=== PATIENT | female | born 2000 | race American Indian/Alaskan Native ===

== ENCOUNTER 2022-02-05 20:02 | Inpatient (IN) | payer MEDICAID ==
[2022-02-05] MEDS ORDERED: LOPERAMIDE 2 MG CAP PO PRN (22:05)
[2022-02-05] MEDS ORDERED: BUTORPHANOL 2 MG/1 ML INJ IV PRN (22:05)
[2022-02-05] MEDS ORDERED: ePHEDrine SULFATE 50 MG/1 ML INJ IV PRN (22:05)
[2022-02-05] MEDS ORDERED: LIDOCAINE (2%) 20 MG/1 ML VIAL 20 ML MDV INFILTRATI ONE (22:05)
[2022-02-05] MEDS ORDERED: miSOPROStol 200 MCG TAB PR PRN (22:05)
[2022-02-05] MEDS ORDERED: METHYLERGONOVINE MALEATE 0.2 MG/ML VIAL IM PRN (22:05)
[2022-02-05] MEDS ORDERED: TERBUTALINE 1 MG/1 ML INJ SUB-Q PRN (22:05)
[2022-02-05] MEDS ORDERED: CARBOPROST TROMETHAMINE 250 MCG/1 ML INJ IM PRN (22:05)
[2022-02-05] MEDS ORDERED: MINERAL OIL 30 ML ORAL LIQD PO PRN (22:05)
[2022-02-05] MEDS ORDERED: ACETAMINOPHEN 325 MG TAB PO PRN (22:05)
[2022-02-05] MEDS ORDERED: OXYTOCIN 10 UNIT/1 ML INJ IM PRN (22:05)
[2022-02-05] MEDS ORDERED: DINOPROSTONE 10 MG VAG SUPP VG ONE (23:40)
[2022-02-05] MEDS: LACTATED RINGERS 1,000 ML IV SCH (23:46)
[2022-02-05 23:49] LABS: Hematocrit 28.6 % (30.3-42.9); Hemoglobin 9.3 gm/dl (10.1-14.3); Mean Corpuscular HGB Conc 32 % (30-34); Mean Corpuscular Volume 77 fl (79-97); Platelet Count 292 K/mm3 (140-440); Red Blood Count 3.73 M/mm3 (3.65-5.03); Red Cell Distribution Width 16.2 % (13.2-15.2)
[2022-02-06] MEDS ORDERED: DINOPROSTONE 10 MG VAG SUPP VG ONE (01:00)
[2022-02-06] MEDS: LACTATED RINGERS 1,000 ML IV SCH (06:42)
--- NOTE | 2022-02-06 08:38 | History and Physical Report ---
History of Present Illness Date of examination: 02/06/22 Date of admission: 02/05/22 22:05 Chief complaint: IOL secondary to postdates History of present illness: 22 yo, G1 @ 41.2 wks, initiated care with [facility] rn disease management at 11 wks gestation. has been complicated by asthma, anemia, trichomonas, subchoronic hemorrhage and UTI. Reports to [facility] last night for scheduled IOL for post-date . Reports + FM. Denies any VB or LOF. Labs: O+, antibody negative; rubella immune; HBsAg negative; HIV negative; Hep C negative; HSV2 negative; GC/Chlamydia negative; MSAFP/Multiple markers low-risk; 1 hr gtt 113; GBS negative. Past History Past Medical History: asthma Past Surgical History: no surgical history Family/Genetic History: none Social history: single, smoking (marijuana), full code. denies: alcohol abuse, prescription drug abuse, IV drug use - Obstetrical History Expected Date of Delivery: 01/29/22 Actual Gestation: 41 Week(s) 2 Day(s) : 1 Para: 0 Hx # Term Pregnancies: 0 Number of Pregnancies: 0 Spontaneous Abortions: 0 Induced : 0 Number of Living Children: 0 Medications and Allergies Allergies Allergy/AdvReac Type Severity Reaction Status Date / Time No Known Allergies Allergy Unverified 02/05/22 22:05 Active Meds: Active Medications Acetaminophen (Acetaminophen 325 Mg Tab) 650 mg PO Q4H PRN PRN Reason: Pain, Mild (1-3) Butorphanol Tartrate (Butorphanol 2 Mg/1 Ml Inj) 1 mg IV Q2H PRN PRN Reason: Pain, Moderate(4-6) LABOR PAIN Last Admin: 02/06/22 06:52 Dose: 1 mg Carboprost Tromethamine (Carboprost Tromethamine 250 Mcg/1 Ml Inj) 250 mcg IM ONCE PRN PRN Reason: Uterine Bleeding Ephedrine Sulfate (Ephedrine Sulfate 50 Mg/1 Ml Inj) 10 mg IV Q2M PRN PRN Reason: Hypotension Fentanyl (Fentanyl 100 Mcg/2 Ml Inj) 100 mcg IV Q2H PRN PRN Reason: Pain,Severe (7-10) LABOR PAIN Lactated Ringer's (Lactated Ringers) 1,000 mls @ 125 mls/hr IV DIRECT JUAN MANUEL Last Admin: 02/06/22 06:42 Dose: 125 mls/hr Loperamide HCl (Loperamide 2 Mg Cap) 2 mg PO ONCE PRN PRN Reason: give with Hemabate Methylergonovine Maleate (Methylergonovine Maleate 0.2 Mg/Ml Vial) 0.2 mg IM ONCE PRN PRN Reason: Uterine Bleeding Mineral Oil (Mineral Oil 30 Ml Oral Liqd) 30 ml PO QHS PRN PRN Reason: Constipation Misoprostol (Misoprostol 200 Mcg Tab) 800 mcg [place] ONCE PRN PRN Reason: Uterine Bleeding Oxytocin (Oxytocin 10 Unit/1 Ml Inj) 10 unit IM ONCE PRN PRN Reason: Uterine Bleeding Terbutaline Sulfate (Terbutaline 1 Mg/1 Ml Inj) 0.25 mg SUB-Q ONCE PRN PRN Reason: Hyperstimulation/Hypertonicity - Vital Signs Vital signs: Vital Signs Pulse BP 104 H 134/68 02/05/22 22:04 02/05/22 22:04 Temp Pulse Resp BP Pulse Ox 98.1 F 110 H 119/69 100 02/06/22 03:40 02/06/22 08:25 02/06/22 08:18 02/06/22 08:25 - Physical Exam Breasts: Positive: normal Cardiovascular: Regular rate Lungs: Positive: Normal air movement Abdomen: Positive: other (gravid) Uterus: Positive: enlarged (S=D) Extremities: Positive: edema Deep Tendon Reflex Grade: Normal +2 - Obstetrical FHR: category 1 Cervical Dilatation: 0 (per RN) Cervical Effacement Percentage: 30 station: -3 Uterine Contraction Pattern: Irregular Uterine Tone Measurement Phase: Resting Results Result Diagrams: 02/05/22 22:51 Abnormal lab results 02/05/22 Range/Units 22:51 Hgb 9.3 L (10.1-14.3) gm/dl Hct 28.6 L (30.3-42.9) % MCV 77 L (79-97) fl MCH 25 L (28-32) pg RDW 16.2 H (13.2-15.2) % All other labs normal. Assessment and Plan - Patient Problems (1) Post-dates Current Visit: Yes Status: Acute Qualifiers: Post-term type: 40-42 weeks gestation Qualified Code(s): O48.0 - Post-term Plan to address problem: IOL, initiate cervidil as tolerated Pain meds as needed Continue to closely monitor maternal/fatal wellbeing (2) Anemia Current Visit: Yes Status: Acute Qualifiers: Anemia type: iron deficiency Plan to address problem: Asymptomatic (3) COVID-19 Current Visit: Yes Status: Acute Plan to address problem: Maintain precautions per protocol
[2022-02-06] MEDS: miSOPROStol 25 MCG TAB PO PRN ×2 (16:31→20:46)
[2022-02-07] MEDS: fentaNYL 100 MCG/2 ML INJ IV PRN ×3 (01:40→22:59)
[2022-02-07] MEDS: miSOPROStol 25 MCG TAB PO PRN (07:23)
--- NOTE | 2022-02-07 08:18 | Progress Note ---
Assessment and Plan - Patient Problems (1) Post-dates Current Visit: Yes Status: Acute Qualifiers: Post-term type: 40-42 weeks gestation Qualified Code(s): O48.0 - Post-term Plan to address problem: May shower and eat bkft Continue cytotec as ordered Continue to closely monitor maternal/fatal wellbeing (2) Anemia Current Visit: Yes Status: Acute Qualifiers: Anemia type: iron deficiency Plan to address problem: Asymptomatic (3) COVID-19 Current Visit: Yes Status: Acute Plan to address problem: Maintain precautions per protocol Subjective - Subjective Date of service: 02/07/22 Principal diagnosis: post-date ; IOL Interval history: 22 yo, G1 @ 41.2 wks, initiated care with [place] [facility] at 11 wks gestation. has been complicated by asthma, anemia, trichomonas, subchoronic hemorrhage and UTI. Reports to [facility] last night for scheduled IOL for post-date . Reports + FM. Denies any VB or LOF. Labs: O+, antibody negative; rubella immune; HBsAg negative; HIV negative; Hep C n egative; HSV2 negative; GC/Chlamydia negative; MSAFP/Multiple markers low-risk; 1 hr gtt 113; GBS negative. Patient reports: movement normal, contractions, no new complaints, no loss of fluid, no vaginal bleeding Objective - Vital Signs Vital Signs: Vital Signs - 12hr 02/06/22 02/06/22 02/06/22 20:16 20:21 20:26 Temperature Pulse Rate 104 H 107 H 102 H Respiratory Rate Blood Pressure O2 Sat by Pulse 99 99 99 Oximetry O2 Sat by Pulse Oximetry [ Throughout] 02/06/22 02/06/22 02/06/22 20:31 20:36 20:41 Temperature Pulse Rate 107 H 108 H 104 H Respiratory Rate Blood Pressure O2 Sat by Pulse 99 100 99 Oximetry O2 Sat by Pulse Oximetry [ Throughout] 02/06/22 02/06/22 02/06/22 20:46 20:48 20:51 Temperature Pulse Rate 121 H 98 H 109 H Respiratory Rate Blood Pressure 115/59 O2 Sat by Pulse 99 100 Oximetry O2 Sat by Pulse Oximetry [ Throughout] 02/06/22 02/06/22 02/06/22 20:56 21:01 21:06 Temperature Pulse Rate 104 H 106 H 94 H Respiratory Rate Blood Pressure O2 Sat by Pulse 100 99 99 Oximetry O2 Sat by Pulse Oximetry [ Throughout] 02/06/22 02/06/22 02/06/22 21:11 21:16 21:26 Temperature Pulse Rate 106 H 106 H 107 H Respiratory Rate Blood Pressure O2 Sat by Pulse 99 99 99 Oximetry O2 Sat by Pulse Oximetry [ Throughout] 02/06/22 02/06/22 02/06/22 21:31 21:36 21:41 Temperature Pulse Rate 104 H 105 H 104 H Respiratory Rate Blood Pressure O2 Sat by Pulse 100 100 99 Oximetry O2 Sat by Pulse Oximetry [ Throughout] 02/06/22 02/06/22 02/06/22 21:46 21:51 21:56 Temperature Pulse Rate 110 H 104 H 101 H Respiratory Rate Blood Pressure O2 Sat by Pulse 100 99 99 Oximetry O2 Sat by Pulse Oximetry [ Throughout] 02/06/22 02/06/22 02/06/22 22:01 22:06 22:11 Temperature Pulse Rate 103 H 100 H 109 H Respiratory Rate Blood Pressure O2 Sat by Pulse 99 99 99 Oximetry O2 Sat by Pulse Oximetry [ Throughout] 02/06/22 02/06/22 02/06/22 22:16 22:21 22:26 Temperature Pulse Rate 101 H 111 H 105 H Respiratory Rate Blood Pressure O2 Sat by Pulse 99 99 98 Oximetry O2 Sat by Pulse Oximetry [ Throughout] 02/06/22 02/06/22 02/06/22 22:31 22:36 22:41 Temperature Pulse Rate 113 H 105 H 119 H Respiratory Rate Blood Pressure O2 Sat by Pulse 99 99 100 Oximetry O2 Sat by Pulse Oximetry [ Throughout] 02/06/22 02/06/22 02/06/22 22:46 22:51 22:56 Temperature Pulse Rate 95 H 102 H 102 H Respiratory Rate Blood Pressure O2 Sat by Pulse 98 98 99 Oximetry O2 Sat by Pulse Oximetry [ Throughout] 02/06/22 02/06/22 02/06/22 23:01 23:06 23:11 Temperature Pulse Rate 117 H 95 H 96 H Respiratory Rate Blood Pressure O2 Sat by Pulse 99 98 98 Oximetry O2 Sat by Pulse Oximetry [ Throughout] 02/06/22 02/06/22 02/06/22 23:16 23:21 23:26 Temperature Pulse Rate 97 H 97 H 114 H Respiratory Rate Blood Pressure O2 Sat by Pulse 99 99 99 Oximetry O2 Sat by Pulse Oximetry [ Throughout] 02/06/22 02/06/22 02/06/22 23:31 23:36 23:41 Temperature Pulse Rate 96 H 93 H 92 H Respiratory Rate Blood Pressure O2 Sat by Pulse 98 99 98 Oximetry O2 Sat by Pulse Oximetry [ Throughout] 02/06/22 02/06/22 02/06/22 23:46 23:51 23:56 Temperature Pulse Rate 90 94 H 92 H Respiratory Rate Blood Pressure O2 Sat by Pulse 99 99 99 Oximetry O2 Sat by Pulse Oximetry [ Throughout] 02/07/22 02/07/22 02/07/22 00:01 00:06 00:15 Temperature Pulse Rate 104 H 104 H 104 H Respiratory Rate Blood Pressure O2 Sat by Pulse 100 99 99 Oximetry O2 Sat by Pulse Oximetry [ Throughout] 02/07/22 02/07/22 02/07/22 00:20 00:25 00:30 Temperature 98.4 F Pulse Rate 91 H 98 H 92 H Respiratory 18 Rate Blood Pressure O2 Sat by Pulse 99 100 100 Oximetry O2 Sat by Pulse 98 Oximetry [ Throughout] 02/07/22 02/07/22 02/07/22 00:35 00:40 00:45 Temperature Pulse Rate 91 H 102 H 95 H Respiratory Rate Blood Pressure O2 Sat by Pulse 100 100 99 Oximetry O2 Sat by Pulse Oximetry [ Throughout] 02/07/22 02/07/22 02/07/22 00:50 00:55 01:00 Temperature Pulse Rate 97 H 92 H 98 H Respiratory Rate Blood Pressure O2 Sat by Pulse 100 99 99 Oximetry O2 Sat by Pulse Oximetry [ Throughout] 02/07/22 02/07/22 02/07/22 01:05 01:10 01:20 Temperature Pulse Rate 107 H 99 H 106 H Respiratory Rate Blood Pressure O2 Sat by Pulse 100 99 99 Oximetry O2 Sat by Pulse Oximetry [ Throughout] 02/07/22 02/07/22 02/07/22 01:25 01:30 01:35 Temperature Pulse Rate 100 H 118 H 94 H Respiratory Rate Blood Pressure O2 Sat by Pulse 100 100 99 Oximetry O2 Sat by Pulse Oximetry [ Throughout] 02/07/22 02/07/22 02/07/22 01:39 01:40 01:45 Temperature Pulse Rate 93 H 101 H 101 H Respiratory Rate Blood Pressure 119/59 O2 Sat by Pulse 100 99 Oximetry O2 Sat by Pulse Oximetry [ Throughout] 02/07/22 02/07/22 02/07/22 01:50 01:55 02:00 Temperature Pulse Rate 92 H 94 H 91 H Respiratory Rate Blood Pressure O2 Sat by Pulse 98 99 99 Oximetry O2 Sat by Pulse Oximetry [ Throughout] 02/07/22 02/07/22 02/07/22 02:05 02:10 02:15 Temperature Pulse Rate 91 H 105 H 98 H Respiratory Rate Blood Pressure O2 Sat by Pulse 99 100 99 Oximetry O2 Sat by Pulse Oximetry [ Throughout] 02/07/22 02/07/22 02/07/22 02:20 02:25 02:30 Temperature Pulse Rate 93 H 94 H 95 H Respiratory Rate Blood Pressure O2 Sat by Pulse 99 98 98 Oximetry O2 Sat by Pulse Oximetry [ Throughout] 02/07/22 02/07/22 02/07/22 02:35 02:40 02:45 Temperature Pulse Rate 96 H 121 H 117 H Respiratory Rate Blood Pressure O2 Sat by Pulse 99 100 100 Oximetry O2 Sat by Pulse Oximetry [ Throughout] 02/07/22 02/07/22 02/07/22 02:50 02:55 03:00 Temperature Pulse Rate 99 H 95 H 101 H Respiratory Rate Blood Pressure O2 Sat by Pulse 98 98 99 Oximetry O2 Sat by Pulse Oximetry [ Throughout] 02/07/22 02/07/22 02/07/22 03:05 03:10 03:15 Temperature Pulse Rate 96 H 91 H 111 H Respiratory Rate Blood Pressure O2 Sat by Pulse 99 98 100 Oximetry O2 Sat by Pulse Oximetry [ Throughout] 02/07/22 02/07/22 02/07/22 03:20 03:25 03:30 Temperature Pulse Rate 85 111 H 120 H Respiratory Rate Blood Pressure O2 Sat by Pulse 99 100 98 Oximetry O2 Sat by Pulse Oximetry [ Throughout] 02/07/22 02/07/22 02/07/22 03:35 03:40 03:45 Temperature Pulse Rate 88 97 H 99 H Respiratory Rate Blood Pressure O2 Sat by Pulse 98 100 99 Oximetry O2 Sat by Pulse Oximetry [ Throughout] 02/07/22 02/07/22 02/07/22 03:50 03:55 04:00 Temperature Pulse Rate 84 98 H 90 Respiratory Rate Blood Pressure O2 Sat by Pulse 99 99 99 Oximetry O2 Sat by Pulse Oximetry [ Throughout] 02/07/22 02/07/22 02/07/22 04:05 04:10 04:15 Temperature Pulse Rate 114 H 90 93 H Respiratory Rate Blood Pressure O2 Sat by Pulse 100 99 98 Oximetry O2 Sat by Pulse Oximetry [ Throughout] 02/07/22 02/07/22 02/07/22 04:20 04:25 04:30 Temperature Pulse Rate 96 H 87 91 H Respiratory Rate Blood Pressure O2 Sat by Pulse 99 99 99 Oximetry O2 Sat by Pulse Oximetry [ Throughout] 02/07/22 02/07/22 02/07/22 04:35 04:40 04:45 Temperature Pulse Rate 85 91 H 85 Respiratory Rate Blood Pressure O2 Sat by Pulse 99 100 99 Oximetry O2 Sat by Pulse Oximetry [ Throughout] 02/07/22 02/07/22 02/07/22 04:50 04:55 05:00 Temperature Pulse Rate 96 H 105 H 92 H Respiratory Rate Blood Pressure O2 Sat by Pulse 99 100 99 Oximetry O2 Sat by Pulse Oximetry [ Throughout] 02/07/22 02/07/22 02/07/22 05:05 05:16 05:21 Temperature Pulse Rate 94 H 104 H 109 H Respiratory Rate Blood Pressure O2 Sat by Pulse 99 100 100 Oximetry O2 Sat by Pulse Oximetry [ Throughout] 02/07/22 02/07/22 02/07/22 05:26 05:30 05:31 Temperature 98.4 F Pulse Rate 99 H 97 H Respiratory 20 Rate Blood Pressure O2 Sat by Pulse 99 99 Oximetry O2 Sat by Pulse Oximetry [ Throughout] 02/07/22 02/07/22 02/07/22 05:36 05:41 05:46 Temperature Pulse Rate 94 H 110 H 95 H Respiratory Rate Blood Pressure O2 Sat by Pulse 99 100 98 Oximetry O2 Sat by Pulse Oximetry [ Throughout] 02/07/22 02/07/22 02/07/22 05:51 05:56 06:01 Temperature Pulse Rate 98 H 90 117 H Respiratory Rate Blood Pressure O2 Sat by Pulse 99 98 100 Oximetry O2 Sat by Pulse Oximetry [ Throughout] 02/07/22 02/07/22 02/07/22 06:06 06:11 06:16 Temperature Pulse Rate 91 H 95 H 95 H Respiratory Rate Blood Pressure O2 Sat by Pulse 99 99 99 Oximetry O2 Sat by Pulse Oximetry [ Throughout] 02/07/22 02/07/22 02/07/22 06:21 06:26 06:31 Temperature Pulse Rate 97 H 94 H 94 H Respiratory Rate Blood Pressure O2 Sat by Pulse 99 99 100 Oximetry O2 Sat by Pulse Oximetry [ Throughout] 02/07/22 02/07/22 02/07/22 06:36 06:41 06:46 Temperature Pulse Rate 98 H 94 H 105 H Respiratory Rate Blood Pressure O2 Sat by Pulse 99 99 98 Oximetry O2 Sat by Pulse Oximetry [ Throughout] 02/07/22 02/07/22 02/07/22 06:51 06:56 07:01 Temperature Pulse Rate 89 118 H 113 H Respiratory Rate Blood Pressure O2 Sat by Pulse 99 100 99 Oximetry O2 Sat by Pulse Oximetry [ Throughout] 02/07/22 02/07/22 02/07/22 07:06 07:11 07:16 Temperature Pulse Rate 90 95 H 94 H Respiratory Rate Blood Pressure O2 Sat by Pulse 98 99 99 Oximetry O2 Sat by Pulse Oximetry [ Throughout] 02/07/22 02/07/22 02/07/22 07:21 07:26 07:35 Temperature Pulse Rate 113 H 101 H 109 H Respiratory Rate Blood Pressure O2 Sat by Pulse 100 99 100 Oximetry O2 Sat by Pulse Oximetry [ Throughout] 02/07/22 02/07/22 02/07/22 07:40 07:45 07:50 Temperature Pulse Rate 95 H 95 H 86 Respiratory Rate Blood Pressure O2 Sat by Pulse 99 99 99 Oximetry O2 Sat by Pulse Oximetry [ Throughout] 02/07/22 02/07/22 02/07/22 07:55 08:00 08:05 Temperature Pulse Rate 93 H 91 H 89 Respiratory Rate Blood Pressure O2 Sat by Pulse 100 99 100 Oximetry O2 Sat by Pulse Oximetry [ Throughout] 02/07/22 08:10 Temperature Pulse Rate 91 H Respiratory Rate Blood Pressure O2 Sat by Pulse 100 Oximetry O2 Sat by Pulse Oximetry [ Throughout] - Exam Breasts: deferred Cardiovascular: Regular rate Lungs: Normal air movement FHR: category 1 Uterine Contraction Monitor Mode: External Cervical Dilatation: 0.5 station: -3 Uterine Contraction Frequency (min): 8-10 Uterine Contraction Pattern: Irregular Uterine Tone Measurement Phase: Resting Uterine Contraction Intensity: Mild Extremities: edema Deep Tendon Reflex Grade: Normal +2 - Labs Labs: Abnormal Labs 02/05/22 02/06/22 22:51 11:05 Hgb 9.3 L Hct 28.6 L MCV 77 L MCH 25 L RDW 16.2 H SARS-CoV-2 (PCR) Positive A Laboratory Results - last 24 hr 02/06/22 11:05 SARS-CoV-2 (PCR) Positive A
[2022-02-07] MEDS ORDERED: miSOPROStol 25 MCG TAB PO SCH (12:06)
[2022-02-07] MEDS ORDERED: miSOPROStol 25 MCG TAB PO NR (12:19)
[2022-02-07] MEDS ORDERED: miSOPROStol 25 MCG TAB PO ONE (16:00)
[2022-02-07] MEDS ORDERED: OXYTOCIN DRIP 30 UNITS/500 ML BAG IV SCH (23:00)
[2022-02-08] MEDS: LACTATED RINGERS 1,000 ML IV SCH ×2 (01:05→13:46)
[2022-02-08] MEDS: fentaNYL 100 MCG/2 ML INJ IV PRN (01:54)
[2022-02-08] MEDS: BUTORPHANOL 2 MG/1 ML INJ IV PRN ×2 (03:30→07:45)
--- NOTE | 2022-02-08 10:34 | Progress Note ---
Subjective - Subjective Date of service: 02/08/22 Principal diagnosis: post-date ; IOL Interval history: Pt uncomfortable with contractions. Pt suspected leakage of fluid at 0100 am. ROM plus is positive. Category II tracing. SVE: 1.5/90/-2. Routine intrapartum care. COVID-19 positive, asymptomatic. Epidural when anesthesia available. Patient reports: movement normal, contractions, no new complaints, no loss of fluid, no vaginal bleeding Objective - Vital Signs Vital Signs: Vital Signs - 12hr 02/07/22 02/07/22 02/07/22 22:31 22:36 22:41 Temperature Pulse Rate 109 H 86 88 Respiratory Rate Blood Pressure O2 Sat by Pulse 100 99 99 Oximetry 02/07/22 02/07/22 02/07/22 22:46 22:49 22:51 Temperature Pulse Rate 91 H 84 97 H Respiratory Rate Blood Pressure 119/63 O2 Sat by Pulse 99 100 Oximetry 02/07/22 02/07/22 02/07/22 22:56 23:01 23:06 Temperature Pulse Rate 89 90 93 H Respiratory Rate Blood Pressure O2 Sat by Pulse 100 99 98 Oximetry 02/07/22 02/07/22 02/07/22 23:11 23:16 23:21 Temperature Pulse Rate 88 89 81 Respiratory Rate Blood Pressure O2 Sat by Pulse 98 99 98 Oximetry 02/07/22 02/07/22 02/07/22 23:26 23:31 23:36 Temperature Pulse Rate 85 90 82 Respiratory Rate Blood Pressure O2 Sat by Pulse 99 100 99 Oximetry 02/07/22 02/07/22 02/07/22 23:41 23:46 23:49 Temperature Pulse Rate 85 103 H 80 Respiratory Rate Blood Pressure 116/67 O2 Sat by Pulse 99 99 Oximetry 02/07/22 02/07/22 02/08/22 23:51 23:56 00:01 Temperature Pulse Rate 88 80 95 H Respiratory Rate Blood Pressure O2 Sat by Pulse 99 99 100 Oximetry 02/08/22 02/08/22 02/08/22 00:06 00:11 00:16 Temperature Pulse Rate 81 102 H 94 H Respiratory Rate Blood Pressure O2 Sat by Pulse 100 99 99 Oximetry 02/08/22 02/08/22 02/08/22 00:21 00:26 00:31 Temperature Pulse Rate 96 H 94 H 89 Respiratory Rate Blood Pressure O2 Sat by Pulse 100 99 99 Oximetry 02/08/22 02/08/22 02/08/22 00:36 01:12 01:13 Temperature Pulse Rate 105 H 123 H 127 H Respiratory Rate Blood Pressure 137/85 O2 Sat by Pulse 100 98 Oximetry 02/08/22 02/08/22 02/08/22 01:14 01:17 01:22 Temperature 97.9 F Pulse Rate 96 H 86 Respiratory 22 Rate Blood Pressure O2 Sat by Pulse 100 100 97 Oximetry 02/08/22 02/08/22 02/08/22 01:27 01:32 01:37 Temperature Pulse Rate 112 H 89 98 H Respiratory Rate Blood Pressure O2 Sat by Pulse 100 99 100 Oximetry 02/08/22 02/08/22 02/08/22 01:42 01:47 01:52 Temperature Pulse Rate 93 H 94 H 89 Respiratory Rate Blood Pressure O2 Sat by Pulse 100 100 99 Oximetry 02/08/22 02/08/22 02/08/22 01:57 02:02 02:07 Temperature Pulse Rate 100 H 100 H 97 H Respiratory Rate Blood Pressure O2 Sat by Pulse 99 98 97 Oximetry 02/08/22 02/08/22 02/08/22 02:12 02:14 02:17 Temperature Pulse Rate 93 H 76 105 H Respiratory Rate Blood Pressure 116/56 O2 Sat by Pulse 97 100 Oximetry 02/08/22 02/08/22 02/08/22 02:22 02:27 02:32 Temperature Pulse Rate 110 H 78 109 H Respiratory Rate Blood Pressure O2 Sat by Pulse 100 98 100 Oximetry 02/08/22 02/08/22 02/08/22 02:37 02:42 02:54 Temperature Pulse Rate 132 H 100 H 88 Respiratory Rate Blood Pressure O2 Sat by Pulse 100 99 100 Oximetry 02/08/22 02/08/22 02/08/22 02:59 03:04 03:09 Temperature Pulse Rate 100 H 104 H 105 H Respiratory Rate Blood Pressure O2 Sat by Pulse 99 97 99 Oximetry 02/08/22 02/08/22 02/08/22 03:14 03:19 03:24 Temperature Pulse Rate 103 H 104 H 116 H Respiratory Rate Blood Pressure 124/72 O2 Sat by Pulse 99 100 98 Oximetry 02/08/22 02/08/22 02/08/22 03:29 03:34 03:39 Temperature Pulse Rate 127 H 90 90 Respiratory Rate Blood Pressure O2 Sat by Pulse 99 97 98 Oximetry 02/08/22 02/08/22 02/08/22 03:44 03:49 03:54 Temperature Pulse Rate 93 H 103 H 90 Respiratory Rate Blood Pressure O2 Sat by Pulse 98 98 98 Oximetry 02/08/22 02/08/22 02/08/22 03:59 04:04 04:09 Temperature Pulse Rate 96 H 117 H 90 Respiratory Rate Blood Pressure O2 Sat by Pulse 99 99 97 Oximetry 02/08/22 02/08/22 02/08/22 04:13 04:14 04:19 Temperature Pulse Rate 84 81 92 H Respiratory Rate Blood Pressure 129/63 O2 Sat by Pulse 97 98 Oximetry 02/08/22 02/08/22 02/08/22 04:24 04:29 04:34 Temperature Pulse Rate 88 135 H 96 H Respiratory Rate Blood Pressure O2 Sat by Pulse 98 100 98 Oximetry 02/08/22 02/08/22 02/08/22 04:39 04:44 04:49 Temperature Pulse Rate 90 92 H 87 Respiratory Rate Blood Pressure O2 Sat by Pulse 98 98 98 Oximetry 02/08/22 02/08/22 02/08/22 04:54 04:59 05:04 Temperature Pulse Rate 94 H 86 92 H Respiratory Rate Blood Pressure O2 Sat by Pulse 98 98 98 Oximetry 02/08/22 02/08/22 02/08/22 05:09 05:13 05:20 Temperature Pulse Rate 86 100 H 120 H Respiratory Rate Blood Pressure 124/58 O2 Sat by Pulse 98 98 Oximetry 02/08/22 02/08/22 02/08/22 05:25 05:30 05:35 Temperature Pulse Rate 98 H 109 H 123 H Respiratory Rate Blood Pressure O2 Sat by Pulse 98 99 98 Oximetry 02/08/22 02/08/22 02/08/22 05:40 05:45 05:50 Temperature Pulse Rate 83 114 H 121 H Respiratory Rate Blood Pressure O2 Sat by Pulse 99 99 98 Oximetry 02/08/22 02/08/22 02/08/22 05:55 06:03 06:08 Temperature Pulse Rate 110 H 104 H 97 H Respiratory Rate Blood Pressure O2 Sat by Pulse 98 100 99 Oximetry 02/08/22 02/08/22 02/08/22 06:13 06:18 06:23 Temperature Pulse Rate 103 H 90 109 H Respiratory Rate Blood Pressure 111/67 O2 Sat by Pulse 99 98 98 Oximetry 02/08/22 02/08/22 02/08/22 06:28 06:33 06:38 Temperature Pulse Rate 103 H 112 H 116 H Respiratory Rate Blood Pressure O2 Sat by Pulse 99 98 98 Oximetry 02/08/22 02/08/22 02/08/22 06:43 06:48 06:53 Temperature Pulse Rate 109 H 90 105 H Respiratory Rate Blood Pressure O2 Sat by Pulse 100 98 99 Oximetry 02/08/22 02/08/22 02/08/22 06:58 07:03 07:08 Temperature Pulse Rate 90 91 H 100 H Respiratory Rate Blood Pressure O2 Sat by Pulse 98 99 99 Oximetry 02/08/22 02/08/22 02/08/22 07:13 07:15 07:30 Temperature Pulse Rate 97 H 100 H 119 H Respiratory Rate Blood Pressure 134/78 O2 Sat by Pulse 99 98 Oximetry 02/08/22 02/08/22 02/08/22 07:35 07:40 07:45 Temperature Pulse Rate 109 H 98 H 104 H Respiratory Rate Blood Pressure O2 Sat by Pulse 100 98 97 Oximetry 02/08/22 02/08/22 02/08/22 07:50 07:55 08:00 Temperature Pulse Rate 118 H 97 H 108 H Respiratory Rate Blood Pressure O2 Sat by Pulse 99 99 99 Oximetry 02/08/22 02/08/22 02/08/22 08:05 08:10 08:13 Temperature Pulse Rate 92 H 122 H 89 Respiratory Rate Blood Pressure 131/67 O2 Sat by Pulse 98 100 Oximetry 02/08/22 02/08/22 02/08/22 08:15 08:20 08:25 Temperature Pulse Rate 86 93 H 97 H Respiratory Rate Blood Pressure O2 Sat by Pulse 98 98 98 Oximetry 02/08/22 02/08/22 02/08/22 08:30 08:35 08:40 Temperature Pulse Rate 111 H 89 126 H Respiratory Rate Blood Pressure O2 Sat by Pulse 98 97 98 Oximetry 02/08/22 02/08/22 02/08/22 08:45 08:50 08:55 Temperature Pulse Rate 96 H 119 H 125 H Respiratory Rate Blood Pressure O2 Sat by Pulse 99 98 98 Oximetry 02/08/22 02/08/22 02/08/22 09:00 09:05 09:10 Temperature Pulse Rate 93 H 102 H 102 H Respiratory Rate Blood Pressure O2 Sat by Pulse 98 99 99 Oximetry 02/08/22 02/08/22 02/08/22 09:13 09:15 09:23 Temperature Pulse Rate 102 H 114 H 95 H Respiratory Rate Blood Pressure 131/67 O2 Sat by Pulse 99 100 Oximetry 02/08/22 02/08/22 02/08/22 09:28 09:33 09:38 Temperature Pulse Rate 103 H 105 H 112 H Respiratory Rate Blood Pressure O2 Sat by Pulse 99 99 100 Oximetry 02/08/22 02/08/22 02/08/22 09:43 09:48 09:53 Temperature Pulse Rate 103 H 107 H 100 H Respiratory Rate Blood Pressure O2 Sat by Pulse 99 99 99 Oximetry 02/08/22 02/08/22 02/08/22 10:06 10:11 10:13 Temperature Pulse Rate 122 H 116 H 93 H Respiratory Rate Blood Pressure 121/67 O2 Sat by Pulse 98 99 Oximetry 02/08/22 02/08/22 10:16 10:21 Temperature Pulse Rate 106 H 88 Respiratory Rate Blood Pressure O2 Sat by Pulse 99 98 Oximetry - Labs Labs: Abnormal Labs 02/05/22 02/06/22 02/08/22 22:51 11:05 Unknown Hgb 9.3 L Hct 28.6 L MCV 77 L MCH 25 L RDW 16.2 H Membranes Rupture Positive A SARS-CoV-2 (PCR) Positive A Laboratory Results - last 24 hr 02/08/22 Unknown Membranes Rupture Positive A
--- NOTE | 2022-02-08 12:44 | Anesthesia Consultation ---
Anesthesia Consult and Med Hx Date of service: 02/08/22 - Airway Anesthetic Teeth Evaluation: Good ROM Head & Neck: Adequate Mental/Hyoid Distance: Adequate Mallampati Class: Class II Intubation Access Assessment: Good - Pulmonary Exam CTA: Yes - Cardiac Exam Cardiac Exam: RRR - Pre-Operative Health Status ASA Pre-Surgery Classification: ASA2 Proposed Anesthetic Plan: Epidural - Pulmonary Hx Asthma: Yes (childhood) COPD: No Hx Pneumonia: No - Cardiovascular System Hx Hypertension: No - Central Nervous System Hx Seizures: No Hx Psychiatric Problems: No - Endocrine Hx Renal Disease: No Hx End Stage Renal Disease: No Hx Hypothyroidism: No Hx Hyperthyroidism: No - Hematic Hx Anemia: No Hx Sickle Cell Disease: No - Other Systems Hx Alcohol Use: No Hx Substance Use: No
--- NOTE | 2022-02-08 12:49 | Progress Note ---
Labor Epidural - Labor Epidural Start Time: 12:01 Stop Time: 12:15 Performed by:: KT COX Procedure: Patient is requesting a laboring epidural for laboring pain. Patient IDed, H&P reviewed, all questions and concerns were answered, and consent was signed. Timeout was performed at bedside. Patient in sitting position. Sterile prep and drape was performed. [3] ml of 1% lidocaine skin wheal at L[3]- L [4]. 17- gauge Tuohy epidural needle was advanced to loss of resistance with saline technique 6cm. Single dural perforation via 25 guage spinal needle placed through the shaft of Epidural needle. Positive CSF via spinal needle. Negative CSF negative blood via Epidural needle. Epidural catheter advanced to [10] centimeters. [NEGATIVE] Aspiration [NEGATIVE] test dose. Negative Paresthesia. Sterile dressing applied. Patient tolerated procedure.
[2022-02-08] MEDS ORDERED: ePHEDrine SULFATE 50 MG/1 ML INJ IV PRN (13:00)
[2022-02-08] MEDS ORDERED: NALOXONE 0.4 MG/1 ML INJ IV PRN (13:00)
[2022-02-08] MEDS: fentaNYL-BUPIV 2 MCG/ML-0.125% 200 MCG/100 ML BAG EPIDURAL SCH ×2 (13:07→21:14)
--- NOTE | 2022-02-08 13:27 | Event Note ---
Date: 02/08/22 Pt comfortable with epidural. Category II tracing. SVE: 1.5/100/-2. IUPC placed. Continue pitocin augmentation. Continue to monitor maternal and status
[2022-02-09] MEDS ORDERED: BICITRA ORAL LIQD 30ML PO ONE (01:06)
[2022-02-09] MEDS ORDERED: METOCLOPRAMIDE 10 MG/2 ML INJ IV ONE (01:06)
[2022-02-09] MEDS ORDERED: FAMOTIDINE 20 MG/2 ML INJ IV ONE (01:06)
--- NOTE | 2022-02-09 01:10 | Progress Note ---
Assessment and Plan - Patient Problems (1) Failed induction of labor Current Visit: Yes Status: Acute Plan to address problem: Will proceed with a primary delivery Subjective - Subjective Date of service: 02/09/22 Principal diagnosis: post-date ; IOL Interval history: 22-year-old at 41+4 weeks who was admitted for postterm induction. The patient has had an extensive latent phase of labor. She has had placement of an epidural twice without adequate pain control. The patient has elected to proceed with a primary delivery. Patient reports: new complaints (Pain), loss of fluid, movement normal, contractions, no vaginal bleeding Objective - Vital Signs Vital Signs: Vital Signs - 12hr 02/08/22 02/08/22 02/08/22 13:11 13:14 13:16 Temperature Pulse Rate 85 88 93 H Blood Pressure 124/76 126/76 O2 Sat by Pulse 99 99 Oximetry O2 Sat by Pulse Oximetry [ Throughout] 02/08/22 02/08/22 02/08/22 13:17 13:20 13:21 Temperature Pulse Rate 84 86 97 H Blood Pressure 124/76 123/75 O2 Sat by Pulse 98 Oximetry O2 Sat by Pulse Oximetry [ Throughout] 02/08/22 02/08/22 02/08/22 13:23 13:26 13:29 Temperature Pulse Rate 90 95 H 90 Blood Pressure 120/74 118/80 117/74 O2 Sat by Pulse 99 Oximetry O2 Sat by Pulse Oximetry [ Throughout] 02/08/22 02/08/22 02/08/22 13:31 13:32 13:35 Temperature Pulse Rate 91 H 96 H 95 H Blood Pressure 122/82 126/85 O2 Sat by Pulse 98 Oximetry O2 Sat by Pulse Oximetry [ Throughout] 02/08/22 02/08/22 02/08/22 13:36 13:38 13:41 Temperature Pulse Rate 91 H 93 H 92 H Blood Pressure 120/76 127/72 O2 Sat by Pulse 98 99 Oximetry O2 Sat by Pulse Oximetry [ Throughout] 02/08/22 02/08/22 02/08/22 13:46 13:47 13:51 Temperature Pulse Rate 107 H 113 H 95 H Blood Pressure 133/79 O2 Sat by Pulse 99 99 Oximetry O2 Sat by Pulse Oximetry [ Throughout] 08/26/22 08/26/22 08/26/22 13:56 14:01 14:02 Temperature Pulse Rate 89 92 H 95 H Blood Pressure 120/64 O2 Sat by Pulse 99 99 Oximetry O2 Sat by Pulse Oximetry [ Throughout] 02/08/22 02/08/22 02/08/22 14:06 14:11 14:16 Temperature Pulse Rate 89 90 86 Blood Pressure O2 Sat by Pulse 100 100 100 Oximetry O2 Sat by Pulse Oximetry [ Throughout] 02/08/22 02/08/22 02/08/22 14:21 14:26 14:31 Temperature Pulse Rate 86 83 84 Blood Pressure O2 Sat by Pulse 99 99 98 Oximetry O2 Sat by Pulse Oximetry [ Throughout] 02/08/22 02/08/22 02/08/22 14:34 14:36 14:41 Temperature Pulse Rate 88 84 88 Blood Pressure 118/62 O2 Sat by Pulse 99 99 Oximetry O2 Sat by Pulse Oximetry [ Throughout] 02/08/22 02/08/22 02/08/22 14:46 14:49 14:51 Temperature 98.1 F Pulse Rate 86 82 Blood Pressure O2 Sat by Pulse 99 100 Oximetry O2 Sat by Pulse Oximetry [ Throughout] 02/08/22 02/08/22 02/08/22 14:56 15:01 15:04 Temperature Pulse Rate 98 H 90 83 Blood Pressure 107/59 O2 Sat by Pulse 99 99 Oximetry O2 Sat by Pulse Oximetry [ Throughout] 02/08/22 02/08/22 02/08/22 15:06 15:11 15:16 Temperature Pulse Rate 83 83 84 Blood Pressure O2 Sat by Pulse 100 100 100 Oximetry O2 Sat by Pulse Oximetry [ Throughout] 02/08/22 02/08/22 02/08/22 15:21 15:26 15:31 Temperature Pulse Rate 82 83 90 Blood Pressure O2 Sat by Pulse 100 100 100 Oximetry O2 Sat by Pulse Oximetry [ Throughout] 02/08/22 02/08/22 02/08/22 15:33 15:36 15:41 Temperature Pulse Rate 79 87 78 Blood Pressure 118/58 O2 Sat by Pulse 100 100 Oximetry O2 Sat by Pulse Oximetry [ Throughout] 02/08/22 02/08/22 02/08/22 15:46 15:51 15:56 Temperature Pulse Rate 86 81 90 Blood Pressure O2 Sat by Pulse 100 100 100 Oximetry O2 Sat by Pulse Oximetry [ Throughout] 0802/08/22 02/08/22 16:01 16:03 16:06 Temperature Pulse Rate 92 H 83 110 H Blood Pressure 113/58 O2 Sat by Pulse 100 100 Oximetry O2 Sat by Pulse Oximetry [ Throughout] 02/08/22 02/08/22 02/08/22 16:11 16:16 16:21 Temperature Pulse Rate 90 93 H 78 Blood Pressure O2 Sat by Pulse 100 100 100 Oximetry O2 Sat by Pulse Oximetry [ Throughout] 02/08/22 02/08/22 02/08/22 16:26 16:31 16:33 Temperature Pulse Rate 88 97 H 85 Blood Pressure 113/57 O2 Sat by Pulse 100 100 Oximetry O2 Sat by Pulse Oximetry [ Throughout] 02/08/22 02/08/22 02/08/22 16:36 16:41 16:46 Temperature Pulse Rate 87 87 89 Blood Pressure O2 Sat by Pulse 100 100 100 Oximetry O2 Sat by Pulse Oximetry [ Throughout] 02/08/22 02/08/22 02/08/22 16:51 16:56 17:01 Temperature Pulse Rate 96 H 89 96 H Blood Pressure O2 Sat by Pulse 100 100 100 Oximetry O2 Sat by Pulse Oximetry [ Throughout] 02/08/22 02/08/22 02/08/22 17:03 17:06 17:11 Temperature Pulse Rate 88 89 103 H Blood Pressure 123/62 O2 Sat by Pulse 100 100 Oximetry O2 Sat by Pulse Oximetry [ Throughout] 02/08/22 02/08/22 02/08/22 17:16 17:21 17:26 Temperature Pulse Rate 90 85 87 Blood Pressure O2 Sat by Pulse 100 100 100 Oximetry O2 Sat by Pulse Oximetry [ Throughout] 02/08/22 02/08/22 02/08/22 17:31 17:33 17:36 Temperature Pulse Rate 90 90 94 H Blood Pressure 115/62 O2 Sat by Pulse 100 100 Oximetry O2 Sat by Pulse Oximetry [ Throughout] 02/08/22 02/08/22 02/08/22 17:41 17:46 17:51 Temperature Pulse Rate 84 86 88 Blood Pressure O2 Sat by Pulse 100 100 100 Oximetry O2 Sat by Pulse Oximetry [ Throughout] 02/08/22 02/08/22 02/08/22 17:56 18:01 18:04 Temperature Pulse Rate 93 H 90 84 Blood Pressure 114/56 O2 Sat by Pulse 100 100 Oximetry O2 Sat by Pulse Oximetry [ Throughout] 02/08/22 02/08/22 02/08/22 18:06 18:11 18:16 Temperature Pulse Rate 92 H 87 86 Blood Pressure O2 Sat by Pulse 100 100 100 Oximetry O2 Sat by Pulse Oximetry [ Throughout] 02/08/22 02/08/22 02/08/22 18:21 18:26 18:31 Temperature Pulse Rate 95 H 94 H 95 H Blood Pressure O2 Sat by Pulse 100 99 99 Oximetry O2 Sat by Pulse Oximetry [ Throughout] 02/08/22 02/08/22 02/08/22 18:33 18:36 18:41 Temperature Pulse Rate 101 H 106 H 105 H Blood Pressure 114/57 O2 Sat by Pulse 98 98 Oximetry O2 Sat by Pulse Oximetry [ Throughout] 02/08/22 02/08/22 02/08/22 18:46 18:51 18:56 Temperature Pulse Rate 91 H 96 H 93 H Blood Pressure O2 Sat by Pulse 98 98 98 Oximetry O2 Sat by Pulse Oximetry [ Throughout] 02/08/22 02/08/22 02/08/22 19:01 19:03 19:06 Temperature Pulse Rate 89 88 88 Blood Pressure 116/59 O2 Sat by Pulse 99 99 Oximetry O2 Sat by Pulse Oximetry [ Throughout] 02/08/22 02/08/22 02/08/22 19:11 19:16 19:21 Temperature Pulse Rate 89 94 H 93 H Blood Pressure O2 Sat by Pulse 99 99 99 Oximetry O2 Sat by Pulse Oximetry [ Throughout] 02/08/22 02/08/22 02/08/22 19:26 19:31 19:34 Temperature Pulse Rate 90 93 H 92 H Blood Pressure 123/68 O2 Sat by Pulse 99 98 Oximetry O2 Sat by Pulse Oximetry [ Throughout] 02/08/22 02/08/22 02/08/22 19:36 19:41 19:46 Temperature Pulse Rate 93 H 94 H 90 Blood Pressure O2 Sat by Pulse 98 99 98 Oximetry O2 Sat by Pulse Oximetry [ Throughout] 02/08/22 02/08/22 02/08/22 19:51 19:56 20:01 Temperature Pulse Rate 91 H 90 101 H Blood Pressure O2 Sat by Pulse 98 99 97 Oximetry O2 Sat by Pulse Oximetry [ Throughout] 02/08/22 02/08/22 02/08/22 20:05 20:06 20:11 Temperature Pulse Rate 90 94 H 90 Blood Pressure 119/65 O2 Sat by Pulse 98 99 Oximetry O2 Sat by Pulse Oximetry [ Throughout] 02/08/22 02/08/22 02/08/22 20:16 20:21 20:26 Temperature Pulse Rate 92 H 89 88 Blood Pressure O2 Sat by Pulse 99 98 99 Oximetry O2 Sat by Pulse Oximetry [ Throughout] 02/08/22 02/08/22 02/08/22 20:31 20:33 20:36 Temperature Pulse Rate 87 90 92 H Blood Pressure 124/67 O2 Sat by Pulse 99 98 Oximetry O2 Sat by Pulse Oximetry [ Throughout] 02/08/22 02/08/22 02/08/22 20:41 20:46 20:51 Temperature Pulse Rate 94 H 98 H 104 H Blood Pressure O2 Sat by Pulse 99 99 99 Oximetry O2 Sat by Pulse Oximetry [ Throughout] 02/08/22 02/08/22 02/08/22 20:56 21:01 21:02 Temperature 98.5 F Pulse Rate 102 H 96 H Blood Pressure O2 Sat by Pulse 99 99 Oximetry O2 Sat by Pulse 99 Oximetry [ Throughout] 02/08/22 02/08/22 02/08/22 21:04 21:06 21:11 Temperature Pulse Rate 100 H 101 H 100 H Blood Pressure 114/54 O2 Sat by Pulse 99 99 Oximetry O2 Sat by Pulse Oximetry [ Throughout] 02/08/22 02/08/22 02/08/22 21:16 21:21 21:26 Temperature Pulse Rate 107 H 112 H 103 H Blood Pressure O2 Sat by Pulse 99 100 99 Oximetry O2 Sat by Pulse Oximetry [ Throughout] 02/08/22 02/08/22 02/08/22 21:31 21:33 21:36 Temperature Pulse Rate 114 H 110 H 117 H Blood Pressure 116/67 O2 Sat by Pulse 99 100 Oximetry O2 Sat by Pulse Oximetry [ Throughout] 02/08/22 02/08/22 02/08/22 21:41 21:46 21:51 Temperature Pulse Rate 121 H 110 H 113 H Blood Pressure O2 Sat by Pulse 99 98 98 Oximetry O2 Sat by Pulse Oximetry [ Throughout] 02/08/22 02/08/22 02/08/22 21:56 22:01 22:03 Temperature Pulse Rate 106 H 118 H 109 H Blood Pressure 122/58 O2 Sat by Pulse 99 99 Oximetry O2 Sat by Pulse Oximetry [ Throughout] 02/08/22 02/08/22 02/08/22 22:06 22:11 22:16 Temperature Pulse Rate 115 H 98 H 99 H Blood Pressure O2 Sat by Pulse 100 98 99 Oximetry O2 Sat by Pulse Oximetry [ Throughout] 02/08/22 02/08/22 02/08/22 22:21 22:26 22:31 Temperature Pulse Rate 99 H 109 H 105 H Blood Pressure O2 Sat by Pulse 99 99 99 Oximetry O2 Sat by Pulse Oximetry [ Throughout] 02/08/22 02/08/22 02/08/22 22:33 22:36 22:41 Temperature Pulse Rate 96 H 103 H 104 H Blood Pressure 122/69 O2 Sat by Pulse 99 99 Oximetry O2 Sat by Pulse Oximetry [ Throughout] 02/08/22 02/08/22 02/08/22 22:46 22:51 22:56 Temperature Pulse Rate 112 H 119 H 102 H Blood Pressure O2 Sat by Pulse 100 99 99 Oximetry O2 Sat by Pulse Oximetry [ Throughout] 02/08/22 02/08/22 02/08/22 23:01 23:03 23:06 Temperature Pulse Rate 122 H 106 H 109 H Blood Pressure 130/79 O2 Sat by Pulse 98 98 Oximetry O2 Sat by Pulse Oximetry [ Throughout] 02/08/22 02/08/22 02/08/22 23:11 23:16 23:21 Temperature Pulse Rate 109 H 132 H 106 H Blood Pressure O2 Sat by Pulse 99 99 98 Oximetry O2 Sat by Pulse Oximetry [ Throughout] 02/08/22 02/08/22 02/08/22 23:26 23:31 23:33 Temperature Pulse Rate 130 H 118 H 120 H Blood Pressure 138/71 O2 Sat by Pulse 99 98 Oximetry O2 Sat by Pulse Oximetry [ Throughout] 02/08/22 02/08/22 02/08/22 23:36 23:41 23:46 Temperature Pulse Rate 118 H 130 H 121 H Blood Pressure O2 Sat by Pulse 100 99 99 Oximetry O2 Sat by Pulse Oximetry [ Throughout] 02/08/22 02/08/22 02/09/22 23:51 23:56 00:01 Temperature Pulse Rate 117 H 110 H 105 H Blood Pressure O2 Sat by Pulse 99 98 99 Oximetry O2 Sat by Pulse Oximetry [ Throughout] 02/09/22 02/09/22 02/09/22 00:03 00:06 00:11 Temperature Pulse Rate 100 H 131 H 111 H Blood Pressure 130/66 O2 Sat by Pulse 99 99 Oximetry O2 Sat by Pulse Oximetry [ Throughout] 02/09/22 02/09/22 02/09/22 00:16 00:21 00:26 Temperature Pulse Rate 104 H 101 H 110 H Blood Pressure O2 Sat by Pulse 99 99 100 Oximetry O2 Sat by Pulse Oximetry [ Throughout] 02/09/22 02/09/22 02/09/22 00:31 00:33 00:36 Temperature Pulse Rate 115 H 114 H 119 H Blood Pressure 145/65 O2 Sat by Pulse 99 99 Oximetry O2 Sat by Pulse Oximetry [ Throughout] 02/09/22 02/09/22 02/09/22 00:41 00:46 00:51 Temperature Pulse Rate 124 H 119 H 121 H Blood Pressure O2 Sat by Pulse 100 100 100 Oximetry O2 Sat by Pulse Oximetry [ Throughout] 02/09/22 02/09/22 02/09/22 00:56 01:01 01:03 Temperature Pulse Rate 115 H 107 H 108 H Blood Pressure 131/77 O2 Sat by Pulse 98 99 Oximetry O2 Sat by Pulse Oximetry [ Throughout] 02/09/22 01:06 Temperature Pulse Rate 135 H Blood Pressure O2 Sat by Pulse 100 Oximetry O2 Sat by Pulse Oximetry [ Throughout] - Labs Labs: Abnormal Labs 02/05/22 02/06/22 02/08/22 22:51 11:05 Unknown Hgb 9.3 L Hct 28.6 L MCV 77 L MCH 25 L RDW 16.2 H Membranes Rupture Positive A SARS-CoV-2 (PCR) Positive A Laboratory Results - last 24 hr 02/08/22 Unknown Membranes Rupture Positive A
[2022-02-09] MEDS ORDERED: LACTATED RINGERS 1,000 ML IV SCH (01:15)
[2022-02-09] MEDS ORDERED: OXYTOCIN DRIP 30 UNITS/500 ML BAG IV SCH ×2 (02:00→08:00)
[2022-02-09] MEDS ORDERED: ceFAZolin/Water 2 GM/20 ML 2 GM/20 ML SYRINGE IV NR (02:00)
[2022-02-09] MEDS: fentaNYL-BUPIV 2 MCG/ML-0.125% 200 MCG/100 ML BAG EPIDURAL SCH (03:37)
[2022-02-09] MEDS ORDERED: SODIUM CHLORIDE 0.9% IRR 1,500 ML BOTTLE IR ONE (06:15)
[2022-02-09] MEDS ORDERED: WATER FOR IRRIG STERILE 1,500 ML BOTTLE IR ONE (06:15)
[2022-02-09] MEDS ORDERED: LIDOCAINE MPF (2%) 20 MG/1 ML VIAL 5 ML ONE ×2 (06:22→06:23)
[2022-02-09] MEDS ORDERED: OXYTOCIN 10 UNIT/1 ML INJ ONE (06:53)
[2022-02-09] MEDS ORDERED: BUPIVACAINE/PF (0.5%) 5 MG/1 ML 30 ML VIAL INFILTRATI ONE (07:13)
[2022-02-09] MEDS ORDERED: dexAMETHasone 20 MG/5 ML VIAL ONE (07:13)
[2022-02-09] MEDS ORDERED: SODIUM CHLORIDE 0.9% 100 ML ONE (07:15)
--- NOTE | 2022-02-09 07:15 | Procedure Note ---
OB Delivery Note - Delivery Date of Delivery: 02/09/22 Surgeon: LARRY ALMONTE Estimated blood loss: other (qbl 880ml) - Section Preop diagnosis: arrest of dilation Postop diagnosis: same section procedure: section, primary low transverse Disposition: PACU Complications: none - Infant A at 1 minute: 8 at 5 minutes: 9 Infant Gender: Female (Weight 6 pounds 11 ounces)
[2022-02-09] MEDS ORDERED: WITCH HAZEL/ GLYCERIN PAD TP PRN (07:17)
[2022-02-09] MEDS ORDERED: LANOLIN/ZINC/DIMETHICONE (LANSINOH) 7 GM TP PRN (07:17)
[2022-02-09] MEDS ORDERED: NALOXONE 0.4 MG/1 ML INJ IV PRN (07:17)
--- NOTE | 2022-02-09 07:17 | Operative Report ---
Operative Report Operative Report: Date of surgery: February 09, 2022 Preoperative diagnosis: at 41+4 days; arrest of dilatation Postoperative diagnosis: Same as above; chorioamnionitis Procedure: Primary low transverse delivery Surgeon: Jamila Hightower M.D. Anesthesia: Regional Estimated blood loss: Q. BL 880 mL Findings: Liveborn female with Apgars of 8 and 9 weight 6 pounds 11 ounces Indications: 22-year-old G1, P0 at 40 W with 4 weeks who was admitted for induction of labor. Her intrapartum course was complicated by a prolonged latent phase. The patient had an adequate pain control and elected to undergo a primary delivery. She advanced to 3 cm dilated. Procedure: The patient was taken to the operating room and given regional anesthesia without complication. She was prepped and draped in a normal sterile fashion. A Pfannenstiel skin incision was made down to layer the fascia which was nicked in the midline extended laterally with the Bovie cautery. The superior aspect of the rectus fascia was grasped with Joan clamps x2 and the rectus muscles off sh arply. This was done in inferior fashion as well. The rectus muscle midline and peritoneum entered bluntly. An Souleymane retractor was then inserted. A bladder blade was placed. The vesicouterine peritoneum was then entered sharply with Metzenbaum scissors. A bladder flap was created digitally. A low transverse uterine incision was then made and extended digitally. There was clear fluid upon entry into the uterine cavity. The head was delivered through the incision with fundal pressure. The cord was clamped and cut x2 and infant was passed off to pediatrics. The placenta was then manually extracted. The uterus was then exteriorized and cleared of clots and debris. The uterine incision was then closed in a running locked fashion with 0 Vicryl additional imbricating stitch was applied for 2 layer closure. The posterior cul-de-sac was then copiously irrigated. The uterus was replaced back into the abdomen and pelvis were the gutters were then irrigated. The Souleymane retractor was then removed. The peritoneum was then reapproximated with 3-0 Vicryl incorporating the rectus muscle. The fascia was then closed with 0 Vicryl in a running fashion. The skin was then reapproximated with 3-0 Monocryl on a Dio needle subcuticular fashion. Steri-Strips to place across the incision and a Crede procedures performed at the end of the surgery. A pressure dressing was applied to the incision. The surgery productive of a liveborn female with Apgars of 8 and 9 weight 6 pounds 11 ounces. The patient was taken to the recovery room in stable condition. All sponge laps and needle counts correct x2.
[2022-02-09] MEDS ORDERED: ACETAMINOPHEN 325 MG TAB PO PRN (07:18)
[2022-02-09] MEDS ORDERED: MAGNESIUM HYDROXIDE (MOM) ORAL LIQD UDC PO PRN (07:18)
[2022-02-09] MEDS ORDERED: ONDANSETRON 4 MG/2 ML INJ IV PRN (07:18)
[2022-02-09] MEDS ORDERED: KETOROLAC 30 MG/1 ML INJ ONE (07:33)
--- NOTE | 2022-02-09 07:40 | Anesthesia Day of Surgery ---
Anesthesia Day of Surgery - Day of Surgery Patient Examined: Yes Patient H&P Reviewed: Yes Patient is NPO: Yes
--- NOTE | 2022-02-09 07:44 | Progress Note ---
Regional Anesthesia Block - Regional Anesthesia Block Start Time: 07:30 Stop Time: 07:34 Performed By:: KT COX Procedure: Patient consented for TAP block for post surgical pain management. Patient identified, monitors placed, and time out performed. TAP identified bilaterally via ultrasound. Skin prepped bilaterally with [chlorhexidine] and [22g stimuplex] needle advanced to the TAP. [Marcaine 0.22% 35ml] injected under ultrasound guidance on the [left] side. [Marcaine 0.22% 35ml] injected under ultrasound guidance on the [right] side. Negative aspiration every 5mL, No change in heart rate or rhythm. Patient tolerated the procedure well. No apparent complications seen.
[2022-02-09] MEDS ORDERED: ACETAMINOPHEN 500 MG TAB PO ONE (07:45)
[2022-02-09] MEDS: D5W/LACTATED RINGERS 1,000 ML IV SCH ×2 (07:55→15:01)
[2022-02-09] MEDS: ceFAZolin/NS 1 GM/50 ML 1 GM/50 ML BAG IV SCH ×2 (07:55→16:09)
[2022-02-09] MEDS: MORPHINE 4 MG/1 ML INJ IV PRN ×2 (10:10→15:00)
[2022-02-09] MEDS: KETOROLAC 30 MG/1 ML INJ IV PRN ×2 (11:07→17:14)
[2022-02-09] MEDS ORDERED: MORPHINE 2 MG/1 ML INJ IV PRN (12:08)
[2022-02-09] MEDS: oxyCODONE /ACETAMINOPHEN 5-325MG TAB PO PRN ×3 (12:11→22:37)
[2022-02-09 21:36] LABS: Hematocrit 22.9 % (30.3-42.9); Hemoglobin 7.3 gm/dl (10.1-14.3)
[2022-02-10] MEDS: IBUPROFEN 600 MG TAB PO PRN ×3 (01:15→18:09)
[2022-02-10] MEDS: oxyCODONE /ACETAMINOPHEN 5-325MG TAB PO PRN ×4 (03:56→21:04)
--- NOTE | 2022-02-10 05:44 | Post Anesthesia Evaluation ---
- Post Anesthesia Evaluation Patient Participated: Yes Airway Patent: Yes Stable Respiratory Function: Yes Nausea/Vomiting: No Temp > 96.8F: Yes Pain Manageable: Yes Adequeate Hydration: Yes Anesthesia Complications: No Block Receding Appropriately: Yes Patient on Ventilator: No
--- NOTE | 2022-02-10 08:07 | Progress Note ---
Assessment and Plan - Patient Problems (1) Failed induction of labor Current Visit: Yes Status: Acute Plan to address problem: Routine postoperative care Subjective - Subjective Date of service: 02/10/22 Principal diagnosis: post-date ; IOL Interval history: Patient is currently without any significant complaints. She reports being able to void after removal of her of her Kwan. She is tolerating a clear diet without complication. The patient has remained afebrile postoperatively. Patient reports: appetite normal, voiding normally, pain well controlled : doing well Objective - Vital Signs Latest vital signs: Vital Signs Temp Pulse Resp BP BP Pulse Ox Pulse Ox 02/10/22 03:56 20 02/10/22 02:15 20 02/10/22 01:15 20 02/10/22 00:38 98.1 F 97 H 20 116/61 98 02/09/22 22:37 20 02/09/22 20:30 98 02/09/22 18:07 98.3 F 63 20 118/73 100 02/09/22 09:30 99.4 F 97 H 18 133/73 97 97 02/09/22 09:00 100 H 22 132/77 98 02/09/22 08:45 100.3 F H 97 H 21 132/75 99 02/09/22 08:30 96 H 21 129/82 99 02/09/22 08:15 102 H 22 126/76 96 Intake and Output 02/09/22 02/10/22 02/10/22 22:59 06:59 14:59 Intake Total 1407.5 240 Output Total 1500 300 Balance -92.5 -60 Intake: IV 887.5 D5lr 1,000 ml @ 125 mls/ 887.5 hr IV DIRECT JUAN MANUEL Rx#: [id number] Oral 320 Intake, Free Water 200 240 Output: Urine 1500 300 Indwelling 50 Indwelling Catheter 850 Void 600 300 Other: Total, Intake Amount 320 Total, Output Amount 600 300 # Voids Void 1 1 - Exam Abdomen: Present: normal appearance, soft Incision: Present: dressed - Labs Labs: Abnormal lab results 02/09/22 Range/Units 21:21 Hgb 7.3 L (10.1-14.3) gm/dl Hct 22.9 L (30.3-42.9) %
[2022-02-11] MEDS: oxyCODONE /ACETAMINOPHEN 5-325MG TAB PO PRN (01:23)
[2022-02-11] MEDS: IBUPROFEN 600 MG TAB PO PRN (05:06)
--- NOTE | 2022-02-11 08:22 | Progress Note ---
Assessment and Plan A: POD#2 s/p primary at 41 wks Chrorioamnionitis Acute on chronic blood loss anemia COVID-19 positive P: Replace steristrips Begin bowel regimen Consider discharge in 12-24 hours Subjective - Subjective Date of service: 02/11/22 Principal diagnosis: POD#2 s/p primary at term, COVID-19, Anemia, Chorioamnionitis Interval history: Pt uncomfortable with contractions. Pt suspected leakage of fluid at 0100 am. ROM plus is positive. Category II tracing. SVE: 1.5/90/-2. Routine intrapartum care. COVID-19 positive, asymptomatic. Epidural when anesthesia available. Patient reports: appetite normal, voiding normally, pain well controlled, flatus (minimal ), ambulating normally, no bowel movement : doing well Objective - Vital Signs Latest vital signs: Vital Signs Temp Pulse Resp BP BP Pulse Ox Pulse Ox 02/11/22 01:04 98.5 F 94 H 20 105/56 99 02/10/22 20:00 99 02/10/22 18:09 16 02/10/22 17:53 97.8 F 86 18 114/59 99 02/10/22 13:53 16 02/10/22 11:40 16 02/10/22 09:13 99 02/10/22 08:25 97.9 F 101 H 16 120/60 99 Intake and Output 02/10/22 02/11/22 02/11/22 22:59 06:59 14:59 Intake Total 240 Balance 240 Intake: Oral 240 Other: Total, Intake Amount 240 # Voids Void 1 - Exam Breasts: Present: deferred Abdomen: Present: soft, distention (moderate ) Uterus: Present: fundal height at umbilicus Extremities: Present: edema (trace) Incision: Present: intact (pressure dressing removed, steristrips soaked with serosanguinous fluid, removed )
[2022-02-11] MEDS ORDERED: LACTULOSE 20 GM/30 ML ORAL LIQD PO SCH (09:00)
[2022-02-11] MEDS ORDERED: IBUPROFEN 600 MG TAB PO SCH (09:00)
--- NOTE | 2022-02-11 14:00 | Discharge Summary ---
Providers - Providers Date of Admission: 02/05/22 22:05 Date of discharge: 02/11/22 Attending physician: LARRY ALMONTE Primary care physician: LARRY ALMONTE Hospitalization Reason for admission: induction of labor Delivery: Procedure: section, primary low transverse Procedure details: Please see operative report Incision: intact (with steristrips) Other procedures: none complications: none Discharge diagnosis: IUP at term delivered baby: female Hospital course: Pt was admitted for postdates induction and went to have a primary section which she tolerated well. Her course was complicated by acute on chronic anemia and incidental finding of COVID-19 positive status on routine testing. She met discharge criteria on POD#2 and will follow up in 2 wks for an incision check. Condition at discharge: Stable Disposition: 01 HOME / SELF CARE / HOMELESS - Discharge Diagnoses (1) Term of female Status: Acute (2) S/P section Status: Acute (3) Anemia Status: Acute Qualifiers: Anemia type: iron deficiency (4) COVID-19 Status: Acute (5) Failed induction of labor Status: Acute Qualifiers: Failed induction of labor type: unspecified Qualified Code(s): O61.9 - Failed induction of labor, unspecified (6) Post-dates Status: Acute Qualifiers: Post-term type: 40-42 weeks gestation Qualified Code(s): O48.0 - Post-term Plan - Discharge Medications Prescriptions: Ferrous Sulfate [Feosol 325 MG tab] 325 mg PO BID #60 tablet Ibuprofen [Motrin] 800 mg PO Q8HR PRN #30 tablet PRN Reason: Pain, Moderate (4-6) oxyCODONE /ACETAMINOPHEN [Percocet 5/325] 1 tab PO Q6HR PRN #30 tablet PRN Reason: Pain - Provider Discharge Summary Activity: routine, no sex for 6 weeks, no heavy lifting 4 weeks, no strenuous exercise Diet: routine Instructions: routine Additional instructions: [] Smoking cessation referral if applicable(refer to patient education folder for contact #) [] Refer to [facility]'s [facility] Booklet Call your doctor immediately for: * Fever > 100.5 * Heavy vaginal bleeding ( >1 pad per hour) * Severe persistent headache * Shortness of breath * Reddened, hot, painful area to leg or breast * Drainage or odor from incision. * Keep incision clean and dry at all times and follow doctor's instructions regarding bathing/showering - Follow up plan Follow up: LARRY ALMONTE MD [Primary Care Provider] - 14 Days (Please call to schedule an incision check )
[2022-02-11 17:42] VITALS: BP 136/80
== END 2022-02-11 17:40 | disposition home or self-care (01) | DRG 765 ==
LOC: LD 20:02 → UNDOADMIN 20:02 → LD 22:05 → APU 02-09 06:23 → OB 02-09 09:17
PROVIDERS: ADMIT Obstetrics & Gynecology; ATTEND Obstetrics & Gynecology
PROC: 10D00Z1 Extraction of Products of Conception, Low, Open Approach (ICD-10-PCS; principal; 2022-02-09)
PROC: 10H07YZ Insertion of Other Device into Products of Conception, Via Natural or Artificial Opening (ICD-10-PCS; 2022-02-09)
PROC: 3E0T3BZ Introduction of Anesthetic Agent into Peripheral Nerves and Plexi, Percutaneous Approach (ICD-10-PCS; 2022-02-09)
DX: O41.1230 Chorioamnionitis, third trimester, not applicable or unspecified (principal); U07.1 COVID-19; O48.0 Post-term pregnancy; Z37.0 Single live birth; Z3A.41 41 weeks gestation of pregnancy; O61.0 Failed medical induction of labor; O99.52 Diseases of the respiratory system complicating childbirth; J45.909 Unspecified asthma, uncomplicated; O99.02 Anemia complicating childbirth; O98.52 Other viral diseases complicating childbirth; D62 Acute posthemorrhagic anemia
CPT/HCPCS: 36415; 59200; 84112; 85014; 85018; 85027; 86850; 86900; 86901; G0378; J3490; J7060; J0595; J0690; J1100; J1885; J2270; J2590; J2765; J3010; J7120; J7121; U0003